=== PATIENT | male | born 1945 | race African-American/Black ===

== ENCOUNTER 2019-01-04 13:08 | Inpatient (IN) | payer MEDICARE, MEDICAID ==
[~2019-01-04] VITALS: Ht 170.2 cm; Wt 69.9 kg
[2019-01-04] MEDS ORDERED: MORPHINE SULFATE 4 MG/ML CPJ (NOT FOR IM USE) IV STA (15:11)
[2019-01-04] MEDS ORDERED: SODIUM CHLORIDE 0.9% 1,000 ML IV ONE (15:11)
[2019-01-04] MEDS ORDERED: KETOROLAC 30MG/ML VIAL IV STA (15:11)
[2019-01-04] MEDS ORDERED: ASPIRIN 81MG TABLET PO ONE (15:15)
[2019-01-04] MEDS ORDERED: IPRATROPIUM/ALBUTEROL 0.5-3(2.5)MG/3ML NEB HHN ONE (15:15)
[2019-01-04 16:26] LABS: BASOPHILS % 0.5 % (0.0-2.0); EOSINOPHILS % 0.4 % (0.0-5.0); HEMATOCRIT. 50.7 % (42.0-52.0); HEMOGLOBIN. 16.9 g/dL (14.0-18.0); LYMPHOCYTES % 18.8 % (20.0-50.0); MEAN CORPUSCULAR HEMOGLOBIN 32.5 pg (28.0-32.0); MEAN CORPUSCULAR VOLUME 97.6 fL (80.0-94.0); MEAN PLATELET VOLUME 8.7 fl (7.4-10.4); MONOCYTES % 7.4 % (2.0-8.0); NEUTROPHILS % 72.9 % (40.0-76.0); PLATELET 229 x1000/uL (130-400); RED CELL DISTRIBUTION WIDTH 13.4 % (11.6-14.6)
[2019-01-04 16:29] LABS: CHLORIDE 102 mEq/L (98-107)
[2019-01-04 16:38] LABS: D-DIMER 1.77 mg/L FEU (<0.50); ETHANOL BLOOD < 10 mg/dL; INR 1.1; PARTIAL THROMBOPLASTIN TIME 26.3 sec (23.4-31.0); PROTHROMBIN TIME 11.4 sec (9.1-11.1)
[2019-01-04 16:42] LABS: CREATINE KINASE 778 IU/L (39-308)
[2019-01-04] MEDS ORDERED: ENOXAPARIN 60MG/0.6ML SYR SUBCUT ONE (17:00)
[2019-01-04 17:32] LABS: CLARITY URINE CLEAR (CLEAR); COLOR URINE YELLOW (YELLOW); KETONES URINE TRACE (NEGATIVE); LEUKOCYTE ESTERASE URINE NEGATIVE (NEGATIVE); NITRITE URINE NEGATIVE (NEGATIVE); OCCULT BLOOD URINE NEGATIVE (NEGATIVE); PH URINE 5.5 (4.5-8.0); PROTEIN URINE 1+ (NEGATIVE); SPECIFIC GRAVITY URINE 1.017 (1.005-1.030); UROBILINOGEN URINE 0.2 E.U./dL (0.2-1.0)
[2019-01-04 17:57] LABS: *AMPHETAMINES SCREEN URINE NEGATIVE (NEGATIVE); *BARBITURATES SCREEN URINE NEGATIVE (NEGATIVE); *BENZODIAZEPINES SCREEN URINE NEGATIVE (NEGATIVE); *COCAINE SCREEN URINE PRESUMTIVE POSITIVE (NEGATIVE)
[2019-01-04 17:58] LABS: CANNABINOID URINE SCREEN PRESUMTIVE POSITIVE (NEGATIVE); METHADONE URINE SCREEN NEGATIVE (NEGATIVE); OPIATES URINE SCREEN PRESUMTIVE POSITIVE (NEGATIVE); PHENCYCLIDINE URINE SCREEN NEGATIVE (NEGATIVE)
[2019-01-05] VITALS (7 sets, daily range): BP systolic 93–133; BP diastolic 52–67
[2019-01-05] MEDS ORDERED: ONDANSETRON HCL 4MG/2ML INJ IV PRN (05:15)
[2019-01-05 10:11] LABS: HEMATOCRIT 41.7 % (42.0-52.0); MEAN CORPUSCULAR HEMOGLOBIN 32.6 pg (28.0-32.0); MEAN CORPUSCULAR VOLUME 97.1 fL (80.0-94.0); PLATELET 174 x1000/uL (130-400); RED BLOOD CELL COUNT 4.29 mill/uL (4.7-6.1); RED CELL DISTRIBUTION WIDTH 13.8 % (11.6-14.6)
[2019-01-05 10:20] LABS: CHLORIDE 108 mEq/L (98-107)
[2019-01-05 10:30] LABS: LDL CHOLESTEROL 49 mg/dL (5-100)
[2019-01-05 10:31] LABS: CREATINE KINASE 729 IU/L (39-308)
[2019-01-05 10:32] LABS: HDL CHOLESTEROL 49 mg/dL (40-59)
[2019-01-05 10:34] LABS: CREATINE KINASE MB FRACTION 5.5 ng/mL (0.5-3.6)
[2019-01-05] MEDS: CLOPIDOGREL 75MG TABLET PO SCH (13:33)
[2019-01-05] MEDS: ASPIRIN 81MG TABLET PO SCH (13:35)
[2019-01-05] MEDS: PANTOPRAZOLE SODIUM 40 MG/VIAL IV SCH (13:36)
[2019-01-05] MEDS: ENOXAPARIN 40MG/0.4ML SYR SUBCUT SCH (13:36)
[2019-01-05] MEDS: AMLODIPINE 5MG TABLET PO SCH (13:36)
[2019-01-05 14:36] LABS: CREATINE KINASE MB FRACTION 4.8 ng/mL (0.5-3.6)
[2019-01-05] MEDS: ATORVASTATIN CALCIUM 20MG TABLET PO SCH (21:20)
[2019-01-06 04:00] VITALS: BP_SYST 100; BP_SYST 116; BP_DIAS 53; BP_DIAS 62
[2019-01-06 07:38] VITALS: BP 114/59
[2019-01-06] MEDS: PANTOPRAZOLE SODIUM 40 MG/VIAL IV SCH (08:43)
[2019-01-06] MEDS: AMLODIPINE 5MG TABLET PO SCH (08:43)
[2019-01-06] MEDS: ASPIRIN 81MG TABLET PO SCH (08:43)
[2019-01-06] MEDS: CLOPIDOGREL 75MG TABLET PO SCH (08:43)
[2019-01-06] MEDS: ENOXAPARIN 40MG/0.4ML SYR SUBCUT SCH (08:43)
[2019-01-06 20:32] VITALS: BP 113/57
[2019-01-06] MEDS: ATORVASTATIN CALCIUM 20MG TABLET PO SCH (22:04)
[2019-01-07] VITALS: BP 103/49
[2019-01-07 04:00] VITALS: BP 121/82
[2019-01-07 08:00] VITALS: BP 128/77
[2019-01-07] MEDS: CLOPIDOGREL 75MG TABLET PO SCH (10:43)
[2019-01-07] MEDS: ASPIRIN 81MG TABLET PO SCH (10:43)
[2019-01-07] MEDS: AMLODIPINE 5MG TABLET PO SCH (10:43)
[2019-01-07] MEDS: ENOXAPARIN 40MG/0.4ML SYR SUBCUT SCH (10:44)
[2019-01-07] MEDS: PANTOPRAZOLE SODIUM 40 MG/VIAL IV SCH (10:56)
[2019-01-07] MEDS ORDERED: ASPI-1159 PO (11:35)
[2019-01-07] MEDS ORDERED: METO25TA3 PO (11:35)
[2019-01-07] MEDS ORDERED: CLOP75TA16 PO (11:35)
[2019-01-07] MEDS ORDERED: LISI-186 PO (11:35)
[2019-01-07] MEDS ORDERED: ATOR-2 PO (11:35)
[2019-01-07] MEDS ORDERED: MULT-34 PO (11:35)
[2019-01-07] MEDS ORDERED: BICT1TAB PO (11:35)
[2019-01-07 12:00] VITALS: BP 105/70
[2019-01-07] MEDS: MORPHINE SULFATE 4 MG/ML CPJ (NOT FOR IM USE) IV PRN (14:19)
[2019-01-07 20:00] VITALS: BP 118/58
[2019-01-07] MEDS: ATORVASTATIN CALCIUM 20MG TABLET PO SCH (20:41)
[2019-01-08] VITALS: BP 126/80
[2019-01-08 04:05] VITALS: BP 116/65
[2019-01-08 06:39] LABS: BASOPHILS % 0.4 % (0.0-2.0); EOSINOPHILS % 0.1 % (0.0-5.0); HEMATOCRIT. 44.1 % (42.0-52.0); LYMPHOCYTES % 10.7 % (20.0-50.0); MEAN CORPUSCULAR VOLUME 96.6 fL (80.0-94.0); MEAN PLATELET VOLUME 8.7 fl (7.4-10.4); MONOCYTES % 10.1 % (2.0-8.0); NEUTROPHILS % 78.7 % (40.0-76.0); PLATELET 167 x1000/uL (130-400); RED BLOOD CELL COUNT 4.56 mill/uL (4.7-6.1); RED CELL DISTRIBUTION WIDTH 13.5 % (11.6-14.6)
[2019-01-08 06:46] LABS: CHLORIDE 104 mEq/L (98-107)
[2019-01-08 07:07] LABS: HEPATITIS B SURFACE ANTIGEN NEGATIVE
[2019-01-08 08:00] VITALS: BP 114/73
[2019-01-08] MEDS: ENOXAPARIN 40MG/0.4ML SYR SUBCUT SCH (09:00)
[2019-01-08] MEDS: CLOPIDOGREL 75MG TABLET PO SCH (10:13)
[2019-01-08] MEDS: AMLODIPINE 5MG TABLET PO SCH (10:13)
[2019-01-08] MEDS: ASPIRIN 81MG TABLET PO SCH (10:13)
[2019-01-08] MEDS: MORPHINE SULFATE 4 MG/ML CPJ (NOT FOR IM USE) IV PRN (10:20)
[2019-01-08] MEDS: PANTOPRAZOLE SODIUM 40 MG/VIAL IV SCH (10:25)
[2019-01-08 11:24] VITALS: BP 114/73
== END 2019-01-08 11:45 | disposition home or self-care (01) | DRG 682 ==
LOC: ER 14:21 → EDBEDREQTM 15:23 → EDBEDREQ 15:23 → 6WST 17:09 → EDBEDREQ 17:12 → EDBEDREQTM 17:12 → ENRESERV 23:58 → CANRESERV 23:58 → UNDODISIN 01-06 16:02
PROVIDERS: ADMIT Hospitalist; ATTEND Hospitalist
DX: N17.9 Acute kidney failure, unspecified (principal); I21.4 Non-ST elevation (NSTEMI) myocardial infarction; E87.2 Acidosis; M94.0 Chondrocostal junction syndrome [Tietze]; F10.10 Alcohol abuse, uncomplicated; F14.10 Cocaine abuse, uncomplicated; F17.200 Nicotine dependence, unspecified, uncomplicated; I10 Essential (primary) hypertension; E78.5 Hyperlipidemia, unspecified; I25.10 Atherosclerotic heart disease of native coronary artery without angina pectoris; J06.9 Acute upper respiratory infection, unspecified; M19.90 Unspecified osteoarthritis, unspecified site; Z21 Asymptomatic human immunodeficiency virus [HIV] infection status; Z79.02 Long term (current) use of antithrombotics/antiplatelets; Z82.49 Family history of ischemic heart disease and other diseases of the circulatory system; Z95.5 Presence of coronary angioplasty implant and graft; I25.2 Old myocardial infarction
CPT/HCPCS: 36415; 71045; 71046; 80048; 80061; 80305; 82550; 82553; 83605; 83880; 84145; 84484; 85027; 85379; 86803; 87340; 87804; 93005; 93306; 94640; 96361; 96372; 96374; 96375; 99285; C9113; J1650; J1885; J2270; J7030; J7620

== ENCOUNTER 2019-01-18 11:30 | Inpatient (IN) | payer MEDICARE, MEDICAID ==
[~2019-01-18] VITALS: Ht 165.1 cm; Wt 65.8 kg
[~2019-01-18 11:30] MED LIST: ASPI-1159 PO; BICT1TAB PO; CLOP75TA16 PO; LISI-186 PO; METO25TA3 PO; MULT-34 PO
[2019-01-18] MEDS ORDERED: METHYLPREDNISOLONE SOD SUCC 125 MG/2 ML VIAL IV STA (22:35)
[2019-01-18] MEDS ORDERED: ASPIRIN 81MG TABLET PO ONE (22:45)
[2019-01-18] MEDS ORDERED: LEVOFLOXACIN 500MG PREMIX 100 ML IV ONE (22:45)
[2019-01-18] MEDS ORDERED: IPRATROPIUM/ALBUTEROL 0.5-3(2.5)MG/3ML NEB HHN ONE (22:45)
[2019-01-18 23:37] LABS: BASOPHILS % 0.6 % (0.0-2.0); EOSINOPHILS % 1.5 % (0.0-5.0); HEMATOCRIT. 38.4 % (42.0-52.0); HEMOGLOBIN. 13.1 g/dL (14.0-18.0); LYMPHOCYTES % 20.2 % (20.0-50.0); MEAN CORPUSCULAR VOLUME 96.7 fL (80.0-94.0); MEAN PLATELET VOLUME 8.1 fl (7.4-10.4); MONOCYTES % 11.2 % (2.0-8.0); NEUTROPHILS % 66.5 % (40.0-76.0); PLATELET 237 x1000/uL (130-400); RED BLOOD CELL COUNT 3.97 mill/uL (4.7-6.1); RED CELL DISTRIBUTION WIDTH 12.6 % (11.6-14.6)
[2019-01-18 23:42] LABS: CHLORIDE 103 mEq/L (98-107)
[2019-01-18 23:46] LABS: INR 1.1; PARTIAL THROMBOPLASTIN TIME 27.7 sec (23.4-31.0); PROTHROMBIN TIME 11.3 sec (9.1-11.1)
[2019-01-18 23:48] LABS: ETHANOL BLOOD < 10 mg/dL
[2019-01-19] MEDS ORDERED: DOCUSATE SODIUM 100MG CAPSULE PO PRN (07:00)
[2019-01-19] MEDS ORDERED: GUAIFENESIN 200MG/10ML SUGAR FREE UDC PO PRN (07:00)
[2019-01-19] MEDS ORDERED: MAGNESIUM/ALUMINUM HYDROXIDE/SIMETHICONE 30ML UDC PO PRN (07:00)
[2019-01-19] MEDS ORDERED: ACETAMINOPHEN 325MG TABLET PO PRN (07:00)
[2019-01-19] MEDS ORDERED: CLONIDINE 0.1MG TABLET PO PRN (07:00)
[2019-01-19] MEDS ORDERED: ONDANSETRON HCL 4MG/2ML INJ IV PRN (07:00)
[2019-01-19] MEDS: ENOXAPARIN 40MG/0.4ML SYR SUBCUT SCH ×2 (09:00→09:13)
[2019-01-19] MEDS: ASPIRIN 81MG EC TABLET PO SCH (09:13)
[2019-01-19] MEDS: AMLODIPINE 10MG TABLET PO SCH (09:13)
[2019-01-19] MEDS: HYDROCODONE/ACETAMINOPHEN 5/325MG TABLET PO PRN (10:45)
[2019-01-19 13:26] VITALS: BP 117/66
[2019-01-19 15:29] LABS: CREATINE KINASE MB FRACTION 2.5 ng/mL (0.5-3.6)
[2019-01-19 16:48] VITALS: BP 127/83
[2019-01-19] MEDS ORDERED: IPRATROPIUM/ALBUTEROL 0.5-3(2.5)MG/3ML NEB HHN PRN (17:15)
[2019-01-19 20:00] VITALS: BP 110/63
[2019-01-20] VITALS: BP 106/64
[2019-01-20 02:11] LABS: CREATINE KINASE MB FRACTION 2.3 ng/mL (0.5-3.6)
[2019-01-20 04:00] VITALS: BP 112/65
[2019-01-20 06:45] LABS: BASOPHILS % 0.4 % (0.0-2.0); EOSINOPHILS % 0.1 % (0.0-5.0); HEMOGLOBIN. 12.3 g/dL (14.0-18.0); LYMPHOCYTES % 16.5 % (20.0-50.0); MEAN CORPUSCULAR HEMOGLOBIN 32.2 pg (28.0-32.0); MEAN CORPUSCULAR VOLUME 97.1 fL (80.0-94.0); MEAN PLATELET VOLUME 8.3 fl (7.4-10.4); MONOCYTES % 6.4 % (2.0-8.0); NEUTROPHILS % 76.6 % (40.0-76.0); PLATELET 228 x1000/uL (130-400); RED BLOOD CELL COUNT 3.81 mill/uL (4.7-6.1); RED CELL DISTRIBUTION WIDTH 12.6 % (11.6-14.6)
[2019-01-20 06:58] LABS: CHLORIDE 107 mEq/L (98-107)
[2019-01-20 07:17] LABS: LDL CHOLESTEROL 50 mg/dL (5-100)
[2019-01-20 07:18] LABS: HDL CHOLESTEROL 40 mg/dL (40-59)
[2019-01-20 08:00] VITALS: BP_SYST 103; BP_SYST 182; BP_DIAS 53; BP_DIAS 66
[2019-01-20] MEDS: AMLODIPINE 10MG TABLET PO SCH (09:00)
[2019-01-20] MEDS: ENOXAPARIN 40MG/0.4ML SYR SUBCUT SCH (09:00)
[2019-01-20] MEDS: ASPIRIN 81MG EC TABLET PO SCH (09:29)
[2019-01-20] MEDS: HYDROCODONE/ACETAMINOPHEN 5/325MG TABLET PO PRN (09:30)
[2019-01-20 12:00] VITALS: BP 134/81
[2019-01-20 16:00] VITALS: BP 118/62
[2019-01-20 20:00] VITALS: BP_SYST 119; BP_DIAS 0; BP_DIAS 70
[2019-01-21] VITALS: BP 105/50
[2019-01-21 04:00] VITALS: BP 106/56
[2019-01-21 08:00] VITALS: BP 123/75
[2019-01-21] MEDS: ENOXAPARIN 40MG/0.4ML SYR SUBCUT SCH (09:07)
[2019-01-21] MEDS: ASPIRIN 81MG EC TABLET PO SCH (09:07)
[2019-01-21] MEDS: AMLODIPINE 10MG TABLET PO SCH (09:07)
[2019-01-21 12:00] VITALS: BP 105/71
[2019-01-21 15:56] VITALS: BP 115/73
[2019-01-21 20:00] VITALS: BP 117/88
[2019-01-22] VITALS: BP 115/66
[2019-01-22 04:00] VITALS: BP 100/66
[2019-01-22 08:00] VITALS: BP 108/67
[2019-01-22] MEDS: ASPIRIN 81MG EC TABLET PO SCH (08:51)
[2019-01-22] MEDS: HYDROCODONE/ACETAMINOPHEN 5/325MG TABLET PO PRN (08:52)
[2019-01-22] MEDS: ENOXAPARIN 40MG/0.4ML SYR SUBCUT SCH (08:52)
[2019-01-22] MEDS: AMLODIPINE 10MG TABLET PO SCH (09:32)
[2019-01-22 12:00] VITALS: BP 109/63
[2019-01-22 14:21] VITALS: BP 109/63
[2019-01-22 16:00] VITALS: BP 116/68
== END 2019-01-22 18:24 | DRG 917 ==
LOC: ER 11:51 → 8WST 01-19 00:57 → EDBEDREQ 01-19 01:00 → ENRESERV 01-19 11:41
PROVIDERS: ADMIT Hospitalist; ATTEND Hospitalist
DX: T40.5X1A Poisoning by cocaine, accidental (unintentional), initial encounter (principal); J96.00 Acute respiratory failure, unspecified whether with hypoxia or hypercapnia; J68.0 Bronchitis and pneumonitis due to chemicals, gases, fumes and vapors; F14.10 Cocaine abuse, uncomplicated; F10.10 Alcohol abuse, uncomplicated; I25.10 Atherosclerotic heart disease of native coronary artery without angina pectoris; B19.20 Unspecified viral hepatitis C without hepatic coma; F17.210 Nicotine dependence, cigarettes, uncomplicated; I10 Essential (primary) hypertension; M19.90 Unspecified osteoarthritis, unspecified site; Z21 Asymptomatic human immunodeficiency virus [HIV] infection status; I25.2 Old myocardial infarction; Z82.49 Family history of ischemic heart disease and other diseases of the circulatory system; Z79.899 Other long term (current) drug therapy; Z79.82 Long term (current) use of aspirin; Y92.89 Other specified places as the place of occurrence of the external cause
CPT/HCPCS: 36415; 71045; 80061; 80320; 82550; 82553; 83605; 83880; 84484; 93005; 93970; 94640; 96365; 96375; 97162; 99285; J1650; J1956; J2930; J7620; G0480